=== PATIENT | male | born 1945 | race African-American/Black ===

== ENCOUNTER 2022-11-09 11:02 | Inpatient (IN) | payer OTHER, MEDICAID ==
[~2022-11-09] VITALS: Ht 177.8 cm; Wt 91.6 kg
[2022-11-09] MEDS ORDERED: SODIUM CHLORIDE 0.9% 1,000 ML IV ONE (11:45)
[2022-11-09 13:11] LABS: MEAN CORPUSCULAR HEMOGLOBIN 19.3 pg (28.0-32.0); MEAN CORPUSCULAR VOLUME 65.2 fL (80.0-94.0); MEAN PLATELET VOLUME 8.2 fl (7.4-10.4); PLATELET 276 x1000/uL (130-400); RED CELL DISTRIBUTION WIDTH 25.3 % (11.6-14.6)
[2022-11-09 13:12] LABS: CHLORIDE 105 mEq/L (98-107)
[2022-11-09 13:14] LABS: HEMATOCRIT. 17.6 % (42.0-52.0); HEMOGLOBIN. 5.2 g/dL (14.0-18.0)
[2022-11-09 13:37] LABS: NUCLEATED RED BLOOD CELLS 5 /100 WBC; PLATELET ESTIMATE NORMAL
[2022-11-09] MEDS ORDERED: PANTOPRAZOLE SODIUM 40 MG/VIAL IV STA (14:03)
[2022-11-09 14:54] LABS: INR 1.1
[2022-11-10 03:04] VITALS: BP 139/71
[2022-11-10 04:00] VITALS: BP 126/67
[2022-11-10] MEDS ORDERED: PANTOPRAZOLE 40MG DR TABLET PO SCH (09:00)
== END 2022-11-10 08:50 | disposition left against medical advice (07) | DRG 74 ==
LOC: ER 11:02 → MICUSO 15:49 → 3WST 11-10 03:09
PROVIDERS: ADMIT Internal Medicine; ATTEND Internal Medicine
PROC: 30233N1 Transfusion of Nonautologous Red Blood Cells into Peripheral Vein, Percutaneous Approach (ICD-10-PCS; principal; 2022-11-09)
DX: G90.8 Other disorders of autonomic nervous system (principal); D62 Acute posthemorrhagic anemia; E11.9 Type 2 diabetes mellitus without complications; E78.00 Pure hypercholesterolemia, unspecified; Z53.29 Procedure and treatment not carried out because of patient's decision for other reasons; Z82.49 Family history of ischemic heart disease and other diseases of the circulatory system
CPT/HCPCS: 36415; 71045; 80053; 82270; 83880; 84484; 85025; 86850; 86900; 86920; 87426; 93005; 99291; C9113; C9803; J7030; P9016